=== PATIENT | male | born 1990 | race Caucasian/White ===

== ENCOUNTER 2023-12-09 14:36 | Emergency (ER) | payer BC, SELFPAY ==
[2023-12-09 14:38] VITALS: BP 176/96; PULSE 101; RESP 18; TEMP 36.6; O2SAT 100; BMI 22.4
--- NOTE | 2023-12-09 15:46 | EDS_ITS ---
HPI History of Present Illness HPI Narrative: Patient presents with pain and swelling to his right arm that began today. Patient states he woke up and felt some aching in his right upper arm. Patient states that his achiness goes from his mid to proximal bicep to the mid to proximal forearm. Patient denies any trauma or injury. Patient describes the pain as aching. Patient states it is worse with movement. Patient states nothing seems to help with it. Patient denies any paresthesias or weakness. Patient is concerned that this could be from a DVT and has upper extremity. Patient states his father had a history of DVT in his upper extremity from B- cell lymphoma. Chief Complaint: Upper Extremity Injury Informant: patient Onset/Context/Timing Onset: Today Context: Gradual Onset Timing: Continuous Quality of Pain: Aching Location: Right upper extremity Worsened by: Movement Relieved by: Nothing PFSH PFSH Medical History no medical history no medical history Home Medications ?Medication ?Instructions ?Recorded ?Last Taken ?Type apixaban 5 mg tablet (Eliquis) 5 mg PO BID #74 tabs 12/09/23 Unknown Rx Allergy/AdvReac Type Severity Reaction Status Date / Time No Known Allergies Allergy Verified 12/09/23 14:37 Family History (Updated 12/09/23 @ 15:[address] Jl Nix DO) Father Cancer B-cell lymphoma Family History no significant family his Surgical History no surgical history no surgical history Social History Smoking Status: Current every day smoker tobacco type: cigarettes ROS ROS ED Constitutional Constitutional ED: Denies chills or fever(s) Eyes Eyes: Denies blurry vision or change in vision ENT ENT ED: Denies rhinorrhea or sore throat Cardiovascular Cardiovascular: Denies chest pain or palpitations Respiratory/Chest Respiratory/Chest: Denies cough or dyspnea Gastrointestinal Gastrointestinal: Denies nausea or vomiting Genitourinary Genitourinary ED: Denies dysuria or hematuria Musculoskeletal Musculoskeletal: Denies back pain or neck pain Integumentary Denies abscess or rash Neurologic Neurologic: Denies headache(s) or weakness Allergic/Immunologic Allergic/Immunologic ED: Denies mouth swelling or urticaria EXAM Physical Exam Const Vital Signs: 12/09/23 14:38 Temperature 98 F Temperature Source Temporal Pulse Rate 101 H Respiratory Rate 18 Blood Pressure 176/96 H Blood Pressure Mean 122 Pulse Ox 100 Oxygen Delivery Method Room Air Positive well nourished and well developed General Appearance ED: well developed and NAD HEENT Reports moist mucous membranes Neck full ROM and supple Extremity Extremity Narrative: There is edema and mild tenderness over the right upper arm and proximal forearm. There is no deformity noted. There is good range of motion. Radial pulses are equal bilaterally. Strength is 5/5 in the radial, median, and ulnar areas. Sensation was intact to light touch in the radial, median, and ulnar areas. Neuro oriented x3, CN's II-XII intact bilaterally, moves all extremities, no focal motor deficits and no sensory deficits noted Sensorium / Orientation: alert Motor Exam: strength 5/5 throughout Psych mental status grossly normal MDM MDM MDM Narrative Medical decision making narrative: Differential diagnosis includes DVT, muscle strain, coagulopathy, pulmonary embolism, and electrolyte abnormality. Venous duplex of the right upper extremity will be obtained to assess for DVT. CBC will be obtained to assess for leukocytosis and anemia. Basic metabolic profile will be obtained to assess for electrolyte abnormality renal function. PT was INR and PTT will be obtained to assess for coagulopathy. CTA of the chest will be obtained to assess for pulmonary embolism. Lab Data Attestation: I reviewed the patient's lab results. Lab results narrative: CBC was reviewed and was within normal limits. Basic metabolic profile was reviewed and was essentially within normal limits. PT with INR and PTT were reviewed and were within normal limits. Radiography CTA PE Study: No Evidence of Dissection Diagnostic Testing: Venous duplex of the right upper extremity was obtained. There is DVT noted in the subclavian vein that extends into the axillary vein, brachial vein, and cephalic vein. CTA of the chest was obtained. There is a right lower lobe pulmonary embolism. There is no right heart strain noted. This was interpreted by the radiologist was also independently reviewed by myself. Treatment and Re-Evaluation Narrative: Patient is resting comfortably on reevaluation. Patient was advised of his findings. Patient was advised of the need to start anticoagulation. Patient is agreeable with this. Patient was given a dose of Eliquis here. Patient was given a prescription for Eliquis. Patient was instructed to follow-up with his primary care physician in 3 to 5 days for further evaluation. Patient and mother understood and were agreeable with the plan. All questions were answered. Discharge Plan Triage Chief Complaint: Upper Extremity Injury ED Provider: Jl Nix Dx/Rx/DC Orders Clinical Impression: Acute deep vein thrombosis (DVT) of right upper extremity, Pulmonary embolism on right Instructions: Pulmonary Embolism, ED Deep Vein Thrombosis (DVT) Prescriptions: New Eliquis 5 mg tablet 5 mg PO BID Qty: 74 0RF Rx Instructions: 10 mg twice a day for the first week. Then 5 mg twice a day. Primary Care Provider: Care Physician,No Primary Referrals: Diana Reynoso MD [Med Staff - [employer]] - 5-7 Days Care Physician,No Primary [Primary Care Provider] - Print Language: Portuguese Disposition Disposition: Home, Self Care
--- NOTE | 2023-12-09 15:54 | VDUE_ITS ---
Reason For Study: Swelling RUE Right Proximal Left Proximal Right jugular vein is spontaneous, widely Left subclavian vein is spontaneous, widely patent, phasic, with no intraluminal patent, phasic, with no intraluminal echogenicity noted. echogenicity noted. Rt Subclavian V, Axillary V, and Brachial V are DILATED and NON COMPRESSIBLE consistent with acute DVT Rt CephalicV at Subclavian origin is NON COMPRESSIBLE. Right Lower Arm Right radial vein is compressible. Right ulnar vein is compressible. Right Arm Right cephalic vein is compressible. Right basilic vein is compressible. VL/Venous Duplex US, Unilateral Interpretation Summary Acute deep thrombosis noted in the right subclavian vein, axillary vein, brachi al vein Acute superficial vein thrombosis noted in the right cephalic vein. Ordering Physician: Jl Nix Performed By: Madelaine Grover, HAMLET, RVT ???
[2023-12-09 16:26] LABS: Absolute Lymphocyte Count 1.17 X10^3/uL (0.83-4.51); Absolute Neutrophil Count 8.7 X10^3/uL (2.0-7.7); Basophil# 0.04 X10^3/uL; Basophil% 0.4 % (0-1); Eosinophil# 0.03 X10^3/uL; Eosinophils% 0.3 % (0-5); Hematocrit 46.2 % (40-54); Hemoglobin 15.8 g/dL (13.0-16.5); Lymphocyte # 1.17 X10^3/ul (0.83-4.51); Mean Corp Hgb Conc 34.2 g/dL (32-36); Mean Corpuscular Hgb 31.7 pg (27.0-32.0); Mean Corpuscular Volume 92.8 fL (80-94); Mean Platelet Vol. 8.9 fl (6.2-12.0); Monocyte# 0.71 X10^3/uL; Monocyte% 6.6 % (0-10); NRBC Flagged by Analyzer 0 % (0-5); Neutrophil % 81.4 % (47-70); Platelet Count 185 K/mm3 (150-450); RBC Distribution Width CV 11.7 % (11.6-14.6); RBC Distribution Width SD 39.8 fl (35.1-43.9); Red Blood Count 4.98 M/mm3 (4.6-6.2); White Blood Count 10.7 K/mm3 (4.4-11.0)
--- NOTE | 2023-12-09 16:33 | CT_ITS ---
We are attempting to reach an attending provider to discuss findings. An addendum with communication details will be sent when the communication is complete. STUDY: CTA CHEST REASON FOR EXAM: Male, 33 years old. Tachycardia RADIATION DOSAGE (If Supplied By Facility): CTDIvol = ( 9.92 ) mGy, DLP = ( 399.14 ) mGycm TECHNIQUE: The examination was performed with the intravenous administration of IV 100mL Isovue-370. Post-processing of the angiographic images was performed, with multiplanar reformation and 3D reconstruction. The protocol utilizes one or more of the following dose reduction techniques: automated exposure control, adjustment of mA and/or kV
[2023-12-09 16:35] VITALS: BP 170/94; PULSE 76; RESP 17; O2SAT 97
[2023-12-09 16:48] LABS: Anion Gap 9 (5-15); BUN 8 mg/dL (7-18); BUN/Creat Ratio 9.2 RATIO (10-20); Calcium,Total 9.9 mg/dL (8.5-10.1); Chloride 102 mmol/L (98-107); Creatinine, Serum 0.87 mg/dL (0.70-1.30); EST Glomerular Filtration Rate 108 mL/min (>60); Est Glom Filt Rate - Afr Amer 131 mL/min (>60); Estimated Creatinine Clearance 137.81 ml/min; Glucose 96 mg/dL (74-106); Sodium Level 135 mmol/L (136-145)
[2023-12-09 16:54] LABS: International Normalized Ratio 1.1; Prothrombin Time (Protime)PT. 14.2 SECONDS (11.7-14.9)
[2023-12-09 16:55] LABS: Partial Thromboplast Time 26.6 Seconds (24.1-36.2)
[2023-12-09] MEDS: APIXABAN 5 MG TABLET 10 MG PO (17:41)
[2023-12-09 17:42] VITALS: BP 135/82; PULSE 88; RESP 16; TEMP 36.6; O2SAT 98
== END 2023-12-09 17:46 | disposition home or self-care (01) ==
PROVIDERS: Emergency Provider Emergency Medicine; Visit Provider Emergency Medicine
DX: I26.99 Other pulmonary embolism without acute cor pulmonale (principal); I82.621 Acute embolism and thrombosis of deep veins of right upper extremity; F17.210 Nicotine dependence, cigarettes, uncomplicated
CPT/HCPCS: 71275; 80048; 85025; 85610; 85730; 93971; 99282; Q9967; A4216

== ENCOUNTER 2023-12-12 06:56 | Emergency (ER) | payer BC, SELFPAY ==
[2023-12-12 06:57] VITALS: BP 129/78; PULSE 92; RESP 16; TEMP 36.8; O2SAT 98; BMI 23.0
--- NOTE | 2023-12-12 07:14 | EX.ED.DYSGE1 ---
HPI History of Present Illness Chief Complaint: Back Informant: patient Onset/Context/Timing Onset: Yesterday Context: Gradual Onset Timing: Continuous Quality: Sharp Location: Right lower chest and lower thoracic area. Worsened by: Movement, deep breathing Relieved by: Nothing Narrative Narrative: Patient presents with right lower chest and back pain that became worse yesterday evening and woke him up today. Patient describes the pain as sharp. Patient states it is over the right lower chest and back area. Patient states it is worse with movement and deep breathing. Patient states it has gotten better since he arrived here in the emergency department. Patient denies any fevers or chills. Patient was seen here recently and diagnosed with a DVT in his right upper extremity and pulmonary embolus. Patient has been taking his Eliquis as prescribed. Patient states he still feels short of breath at times. Patient also admits to a cough and some upper respiratory congestion. [facility] Medical History (Updated 12/12/23 @ 09:[address] Jl Nix DO) Acute deep vein thrombosis (DVT) of right upper extremity Pulmonary embolism on right Home Medications ?Medication ?Instructions ?Recorded ?Last Taken ?Type apixaban 5 mg tablet (Eliquis) 5 mg PO BID #74 tabs 12/09/23 Unknown Rx azithromycin 250 mg tablet 250 mg PO DAILY #4 TABLETS 12/12/23 Unknown Rx Allergy/AdvReac Type Severity Reaction Status Date / Time No Known Allergies Allergy Verified 12/12/23 06:57 Family History (Updated 12/09/23 @ 15:[address] Jl Nix DO) Father Cancer B-cell lymphoma Surgical History no surgical history no surgical history Social History Smoking Status: Current every day smoker tobacco type: cigarettes ROS ROS ED Constitutional Constitutional ED: Denies chills or fever(s) Eyes Eyes: Denies blurry vision or change in vision ENT ENT ED: Reports rhinorrhea; Denies sore throat Cardiovascular Cardiovascular: Reports chest pain; Denies palpitations Respiratory/Chest Respiratory/Chest: Reports cough and dyspnea Gastrointestinal Gastrointestinal: Denies nausea or vomiting Genitourinary Genitourinary ED: Denies dysuria or hematuria Musculoskeletal Musculoskeletal: Reports back pain; Denies neck pain Integumentary Denies abscess or rash Neurologic Neurologic: Denies headache(s) or weakness Allergic/Immunologic Allergic/Immunologic ED: Denies mouth swelling or urticaria EXAM Physical Exam Const Vital Signs: 12/12/23 06:57 Temperature 98.2 F Temperature Source Temporal Pulse Rate 92 Respiratory Rate 16 Blood Pressure 129/78 H Blood Pressure Mean 95 Pulse Ox 98 Oxygen Delivery Method Room Air Positive well nourished and well developed General Appearance ED: well developed and NAD HEENT Reports moist mucous membranes Neck supple and no JVD Chest Wall inspection of chest normal Chest Narrative: There is mild tenderness over the right lower chest wall. There is no edema or ecchymosis. There is no bony crepitance or step-off noted. There is no subcutaneous emphysema noted. Resp normal respiratory effort and clear to auscultation bilaterally Cardio regular rate and regular rhythm GI non-tender and non-distended Palpation: soft Neuro oriented x3, CN's II-XII intact bilaterally and no sensory deficits noted Sensorium / Orientation: alert Motor Exam: strength 5/5 throughout MDM MDM MDM Narrative Medical decision making narrative: Differential diagnosis includes ureteral calculus, progression of pulmonary embolism, pneumonia, pneumothorax, cholecystitis, cholelithiasis, pancreatitis, and musculoskeletal pain. CBC will be obtained to assess for leukocytosis and anemia. Basic metabolic profile will be obtained to assess for electrolyte abnormality and renal function. PT with INR and PTT will be obtained to assess for coagulopathy. Lipase will be obtained to assess for pancreatitis. Hepatic profile will be obtained to assess for hepatic function. CT scan of the abdomen pelvis will be obtained to assess for ureteral calculus, cholecystitis, and pancreatitis. CTA of the chest will be repeated to assess for progression of pulmonary embolism. Lab Data Attestation: I reviewed the patient's lab results. Lab results narrative: CBC was reviewed. There is a mild leukocytosis of 12.4. The remainder was within normal limits. PT was INR and PTT were reviewed. Pro time was 16.2 and INR is 1.3. PTT was normal at 32.2. Basic metabolic profile was reviewed and was within normal limits. Hepatic profile was reviewed and was within normal limits. Lipase was reviewed and was normal. Urinalysis was reviewed. There is no evidence of urinary tract infection or hematuria. Labs: Laboratory Results - last 24 hr 12/12/23 12/12/23 07:30 07:40 WBC 12.4 H RBC 4.66 Hgb 15.1 Hct 44.2 MCV 94.8 H MCH 32.4 H MCHC 34.2 RDW Std Deviation 40.0 RDW Coeff of Brock 11.6 Plt Count 203 MPV 9.2 Immature Gran % (Auto) 0.400 Neut % (Auto) 81.6 H Lymph % (Auto) 10.2 L [place] % (Auto) 6.9 Eos % (Auto) 0.6 Baso % (Auto) 0.3 Absolute Neuts (auto) 10.1 H Absolute Lymphs (auto) 1.27 Nucleated RBC % 0 PT 16.2 H INR 1.3 APTT 32.2 Sodium 136 Potassium 3.9 Chloride 105 Carbon Dioxide 28.0 Anion Gap 3 L BUN 8 Creatinine 0.82 Estim Creat Clear Calc 150.28 Est GFR (MDRD) Af Amer 139 Est GFR (MDRD) Non-Af 115 BUN/Creatinine Ratio 9.7 L Glucose 113 H Calcium 9.6 Total Bilirubin 0.70 Direct Bilirubin 0.23 AST 17 ALT 23 Alkaline Phosphatase 69 Total Protein 7.3 Albumin 3.5 Globulin 3.8 Lipase 22 Urine Color Yellow Urine Clarity Sl. Cloudy Urine pH 6.5 Ur Specific [place] 1.015 Urine Protein 15 H Urine Glucose (UA) Normal Urine Ketones Negative Urine Occult Blood Negative Urine Nitrite Negative Urine Bilirubin Negative Urine Urobilinogen 1 H Ur Leukocyte Esterase 25 H Urine RBC 0 SEEN Urine WBC 0-5 SEEN Ur Squamous Epith Cells 0-5 SEEN Urine Bacteria 1+ Urine Mucus 1+ Radiography Diagnostic Testing: Clinical Impression(s) from Imaging Studies Abdomen/Pelvis CT 12/12/23 07:45 IMPRESSION: Atelectasis and/or infiltrate at the right lung base. Known pulmonary emboli in branches of the right lower lobe pulmonary artery. Electronically Signed: Jesus Manuel Hinson MD at 8:28 EDT , Chest CTA 12/12/23 07:45 IMPRESSION: Persistent pulmonary emboli in branches of the right lower lobe pulmonary artery. New infiltrate and/or atelectasis in the posterior segment of the right lower lobe. Electronically Signed: Jesus Manuel Hinson MD at 8:26 EDT , CTA of the chest was obtained. There are persistent pulmonary emboli in branches of the right lower lobe pulmonary artery. There is new infiltrate or atelectasis in the posterior segment of the right lower lobe. This was interpreted by the radiologist and was also independently reviewed by myself. CT scan of the abdomen pelvis was obtained. There is no ureteral calculus. There is no free air or free fluid. There is atelectasis and/or infiltrate in the right lung base. This was interpreted by the radiologist and was also independently reviewed by myself. Treatment and Re-Evaluation :: Patient was advised of his findings. Patient was given a dose of Zithromax here. Patient was given a prescription for Zithromax. Patient was instructed to continue his Eliquis as prescribed. Patient was instructed to follow-up with his primary care physician in 5 to 7 days. Patient was instructed to return if worse in any way. Patient understood and was agreeable with the plan. All questions were answered. Discharge Plan Triage Chief Complaint: Back ED Provider: Jl Nix Dx/Rx/DC Orders Clinical Impression: Pneumonia, Pulmonary embolism on right Instructions: ED Pneumonia (Adult) Prescriptions: New azithromycin 250 mg tablet 250 mg PO DAILY Qty: 4 0RF No Action Eliquis 5 mg tablet 5 mg PO BID Qty: 74 0RF Rx Instructions: 10 mg twice a day for the first week. Then 5 mg twice a day. Primary Care Provider: Care Physician,No Primary Referrals: Care Physician,No Primary [Primary Care Provider] - Print Language: Kiswahili Disposition Disposition: Home, Self Care
--- NOTE | 2023-12-12 07:45 | CT_ITS ---
STUDY: CT ABDOMEN AND PELVIS WITHOUT CONTRAST REASON FOR EXAM: Male, 33 years old. Right flank pain RADIATION DOSAGE (If Supplied By Facility): CTDIvol = ( 10.04 ) mGy, DLP = ( 724.80 ) mGycm TECHNIQUE: Transaxial images were obtained from the dome of the diaphragm to the symphysis pubis without oral contrast, and without intravenous contrast. Sagittal and coronal images were reconstructed. Individualized dose optimization techniques were used for this CT. COMPARISON: None. FINDINGS: Emboli are seen in branches of the right lower lobe pulmonary artery. Atelectasis and/or infiltrate at the right lung base. The visualized portions of the heart are within normal limits. Normal liver. Normal gallbladder and extrahepatic biliary system. Normal spleen. Normal pancreas. Normal bilateral adrenal glands. Normal right kidney. Normal left kidney. Normal visualized stomach. Normal small intestine. Normal colon. The appendix is visualized and appears normal. Normal abdominal aorta. Normal inferior vena cava. Normal retroperitoneum. Normal urinary bladder. Normal abdominal wall. Normal osseous structures. CT/Abdomen/Pelvis without Cont IMPRESSION: Atelectasis and/or infiltrate at the right lung base. Known pulmonary emboli in branches of the right lower lobe pulmonary artery. Electronically Signed: Jesus Manuel Hinson MD at 8:28 EDT ,
--- NOTE | 2023-12-12 07:45 | CT_ITS ---
STUDY: CTA CHEST REASON FOR EXAM: Male, 33 years old. Recent diagnosis of pulmonary embolism. Patient presents with shortness of breath and flank pain. RADIATION DOSAGE (If Supplied By Facility): CTDIvol = ( 10.04 ) mGy, DLP = ( 724.80 ) mGycm TECHNIQUE: The examination was performed with the intravenous administration of IV 100mL Isovue-370. Post-processing of the angiographic images was performed, with multiplanar reformation and 3D reconstruction. Individualized dose optimization techniques were used for this CT. COMPARISON: Comparison is made with prior study dated December 09, 2023. FINDINGS: Normal enhancement of the main pulmonary artery and right and left pulmonary arteries. Once again, filling defects are seen within the branches of the right lower lung pulmonary artery. These are essentially unchanged. Normal thoracic aorta and visualized great vessels. There is no demonstrated aortic dissection. Normal heart and pericardium. Normal mediastinum. Normal hilar regions. Normal visualized trachea and bronchi. The lungs are well expanded. New area of airspace disease in the posterior segment of the right lower lobe suggestive of either atelectasis and/or possible pneumonic infiltration. Normal pleura. Normal chest wall structures. Normal osseous structures. Normal visualized upper abdomen. CT/CTA Chest W/WO Contrast IMPRESSION: Persistent pulmonary emboli in branches of the right lower lobe pulmonary artery. New infiltrate and/or atelectasis in the posterior segment of the right lower lobe. Electronically Signed: Jesus Manuel Hinson MD at 8:26 EDT ,
[2023-12-12 07:47] LABS: Absolute Lymphocyte Count 1.27 X10^3/uL (0.83-4.51); Absolute Neutrophil Count 10.1 X10^3/uL (2.0-7.7); Basophil# 0.04 X10^3/uL; Basophil% 0.3 % (0-1); Eosinophil# 0.08 X10^3/uL; Eosinophils% 0.6 % (0-5); Hematocrit 44.2 % (40-54); Hemoglobin 15.1 g/dL (13.0-16.5); Lymphocyte # 1.27 X10^3/ul (0.83-4.51); Lymphocyte % 10.2 % (19-41); Mean Corp Hgb Conc 34.2 g/dL (32-36); Mean Corpuscular Hgb 32.4 pg (27.0-32.0); Mean Corpuscular Volume 94.8 fL (80-94); Mean Platelet Vol. 9.2 fl (6.2-12.0); Monocyte# 0.86 X10^3/uL; Monocyte% 6.9 % (0-10); NRBC Flagged by Analyzer 0 % (0-5); Neutrophil # 10.11 X10^3/uL (2.7-7.7); Neutrophil % 81.6 % (47-70); Platelet Count 203 K/mm3 (150-450); RBC Distribution Width CV 11.6 % (11.6-14.6); Red Blood Count 4.66 M/mm3 (4.6-6.2); White Blood Count 12.4 K/mm3 (4.4-11.0)
[2023-12-12 07:51] LABS: International Normalized Ratio 1.3; Prothrombin Time (Protime)PT. 16.2 SECONDS (11.7-14.9)
[2023-12-12 07:52] LABS: Red Blood Cells-Urine 0 SEEN /hpf (0-5)
[2023-12-12 07:52] LABS: Partial Thromboplast Time 32.2 Seconds (24.1-36.2)
[2023-12-12 07:55] LABS: Anion Gap 3 (5-15); BUN 8 mg/dL (7-18); BUN/Creat Ratio 9.7 RATIO (10-20); Calcium,Total 9.6 mg/dL (8.5-10.1); Chloride 105 mmol/L (98-107); Creatinine, Serum 0.82 mg/dL (0.70-1.30); EST Glomerular Filtration Rate 115 mL/min (>60); Est Glom Filt Rate - Afr Amer 139 mL/min (>60); Estimated Creatinine Clearance 150.28 ml/min; Glucose 113 mg/dL (74-106); Potassium 3.9 mmol/L (3.5-5.1); Sodium Level 136 mmol/L (136-145)
[2023-12-12 08:16] LABS: Color, Urine Yellow (Yellow); Glucose, Dipstick Normal (Normal); Ketone-Dipstick Negative (Negative); Leukocyte Esterase-Dipstick 25 /ul (Negative); Nitrite-Dipstick Negative (Negative); Occult Blood-Urine Negative /ul (Negative); Protein-Dipstick 15 mg/dl (Negative); Specific Gravity, Urine 1.015 (1.002-1.030); Urine Bilirubin Dipstick Negative (Negative); Urine Clarity Sl. Cloudy (Clear); Urine Urobilinogen 1 mg/dl (Normal); Urine pH 6.5 (5.0 - 8.0)
[2023-12-12 08:23] LABS: Bacteria 1+ /hpf (None Seen); Mucous, Urine 1+ /hpf (<or=2+); Squamous Epithelial Cells - UA 0-5 SEEN /hpf (0-5); White Blood Cells 0-5 SEEN /hpf (0-5)
[2023-12-12 08:27] LABS: AST(SGOT) 17 U/L (15-37); Alanine Aminotransfer ALT/SGPT 23 U/L (16-61); Albumin, Serum 3.5 g/dL (3.2-5.0); Alkaline Phosphatase 69 U/L (45-117); Bilirubin, Direct 0.23 mg/dL (0.00-0.30); Globulin 3.8 g/dL (2.2-4.2); Lipase 22 U/L (13-75); Protein, Total 7.3 g/dL (6.4-8.2)
[2023-12-12 08:59] VITALS: BP 119/72; PULSE 85; RESP 18; O2SAT 96
[2023-12-12] MEDS: Azithromycin 250 MG Tablet 500 MG PO (09:07)
[2023-12-12 09:08] VITALS: BP 119/72; PULSE 78; RESP 18; TEMP 36.7; O2SAT 97
== END 2023-12-12 09:11 | disposition home or self-care (01) ==
PROVIDERS: Emergency Provider Emergency Medicine; Visit Provider Emergency Medicine
DX: J18.9 Pneumonia, unspecified organism (principal); I26.99 Other pulmonary embolism without acute cor pulmonale; F17.210 Nicotine dependence, cigarettes, uncomplicated; Z79.01 Long term (current) use of anticoagulants
CPT/HCPCS: 71275; 74176; 80048; 80076; 81001; 83690; 85025; 85610; 85730; 99284; Q9967; A4216